=== PATIENT | female | born 2000 | race Asian ===

== ENCOUNTER 2021-08-05 00:13 | Inpatient (IN) ==
[2021-08-05] MEDS ORDERED: MEPERIDINE 50 MG/1 ML VIAL IV PRN (00:24)
[2021-08-05] MEDS ORDERED: BUTORPHANOL 1 MG/ML VIAL IV PRN (00:24)
[2021-08-05] MEDS ORDERED: ONDANSETRON 4 MG/2 ML VIAL IV PRN (00:24)
[2021-08-05] MEDS ORDERED: OXYTOCIN/LR 20 UNIT/1,000 ML BAG IV PRN (00:24)
[2021-08-05] MEDS ORDERED: OXYTOCIN/LR 30 UNIT/1,000 ML BAG IV PRN (00:28)
[2021-08-05 01:09] LABS: Basophils % 0.3 % (0.0-0.8); Eosinophils % 0.4 % (0.00-10.9); Hematocrit 32.2 VOL% (35.7-47.0); Hemoglobin 10.2 GM/DL (12.0-16.0); Immature Granulocytes % 1.2 %; Immature Granulocytes Absolute 0.11 #; Lymphocytes # 2.3 10*3/uL (1.4-4.0); Lymphocytes % 25.5 % (21.3-54.2); Mean Corpuscular HGB Conc 31.7 GM/DL (32-36); Mean Corpuscular Volume 87.7 FL (87-102); Mean Platelet Volume 7.9 FL (9.6-12.0); Monocytes % 7.7 % (1.7-12.7); Neutrophils % 64.9 % (38.7-73.9); Platelet Count 366 T/CUMM (130-400); Red Blood Count 3.67 MC/CUMM (3.8-5.5); Red Cell Distribution Width 13.6 % (9.3-17.3); White Blood Count 8.9 T/CUMM (4-12)
[2021-08-05 01:26] LABS: Albumin 2.8 G/DL (3.4-5.0); Bilirubin,Total 0.4 MG/DL (0.20-1.00); Calcium 9.4 MG/DL (8.5-10.1); Total Protein 6.5 G/DL (6.4-8.2)
[2021-08-05 03:19] LABS: Hepatitis B Surface Ag Quant < 0.10 Index; Hepatitis B Surface Ag Result Non-Reactive (NonReactive)
[2021-08-05 03:23] LABS: HIV Antigen/Antibody Result Nonreactive (Nonreactive)
[2021-08-05] MEDS: LACTATED RINGERS 1,000 ML IV PRN ×2 (06:05→11:05)
[2021-08-05] MEDS ORDERED: hydrOXYzine HCL 25 MG/1 ML VIAL IM PRN (08:20)
[2021-08-05] MEDS ORDERED: LACTATED RINGERS 1,000 ML IV ONE (08:20)
[2021-08-05] MEDS ORDERED: diphenhydrAMINE 50 MG/1 ML VIAL IV PRN ×2 (08:20)
[2021-08-05] MEDS ORDERED: NALOXONE 0.4 MG/ML VIAL IV PRN (08:20)
[2021-08-05] MEDS ORDERED: ePHEDrine 50 MG/ML VIAL IV PRN (08:20)
[2021-08-05] MEDS ORDERED: PROMETHAZINE 25 MG/1 ML VIAL IM ONE (08:20)
[2021-08-05] MEDS ORDERED: CITRIC ACID/SODIUM CITRATE 30 ML UDCUP PO ONE (08:20)
[2021-08-05] MEDS ORDERED: FAMOTIDINE 20 MG/2 ML VIAL IV ONE (08:20)
[2021-08-05] MEDS ORDERED: fentaNYL 2 MCG/ROPIV 0.2% EPID 100 ML EPIDURAL SCH (08:30)
[2021-08-05 12:07] LABS: Bilirubin,Urine Negative (Negative); Blood, Urine Negative (Negative); Glucose,Urine (UA) Negative (Negative); Ketones,Urine Negative (Negative); Mucus,Urine Occasional /LPF (Occasional); Nitrite,Urine Negative (Negative); Protein,Urine Negative; RBC,Urine <1 /HPF (0-4); Squamous Epithelial Cell,Urine Occasional /HPF (0-10); Urine Appearance CLEAR (Clear); Urine Color Straw (Yellow); Urine Specific Gravity 1.013 (1.001-1.035); Urine Urobilinogen < 2.0 EU/DL (0.2-1.0)
[2021-08-05] MEDS ORDERED: miSOPROStoL 200 MCG TABLET ONE (12:35)
[2021-08-05] MEDS ORDERED: CARBOPROST TROMETHAMINE 250 MCG/ML AMP IM ONE (12:36)
[2021-08-05] MEDS ORDERED: METHYLERGONOVINE 0.2 MG/1 ML AMP ONE (12:36)
[2021-08-05] MEDS ORDERED: METHYLERGONOVINE 0.2 MG/1 ML AMP IM ONE (13:25)
[2021-08-05] MEDS ORDERED: IBUPROFEN 800 MG TABLET PO ONE (16:12)
[2021-08-05] MEDS: DOCUSATE SODIUM 100 MG CAPSULE PO SCH (20:56)
[2021-08-06] MEDS: IBUPROFEN 800 MG TABLET PO PRN ×2 (04:21→15:11)
[2021-08-06 04:57] LABS: Basophils % 0.3 % (0.0-0.8); Eosinophils # 0.1 10*3/uL (0.0-0.87); Eosinophils % 0.5 % (0.00-10.9); Hematocrit 28.8 VOL% (35.7-47.0); Hemoglobin 9.1 GM/DL (12.0-16.0); Immature Granulocytes % 0.9 %; Immature Granulocytes Absolute 0.11 #; Lymphocytes # 2.8 10*3/uL (1.4-4.0); Lymphocytes % 22.9 % (21.3-54.2); Mean Corpuscular HGB Conc 31.6 GM/DL (32-36); Mean Corpuscular Volume 88.3 FL (87-102); Mean Platelet Volume 8.1 FL (9.6-12.0); Monocytes % 6.3 % (1.7-12.7); Neutrophils % 69.1 % (38.7-73.9); Platelet Count 227 T/CUMM (130-400); Red Blood Count 3.26 MC/CUMM (3.8-5.5); Red Cell Distribution Width 13.7 % (9.3-17.3); White Blood Count 12.2 T/CUMM (4-12)
[2021-08-06] MEDS: DOCUSATE SODIUM 100 MG CAPSULE PO SCH ×2 (10:38→20:35)
[2021-08-06] MEDS: FERROUS SULFATE 325 MG TABLET PO SCH ×2 (10:38→20:35)
[2021-08-07] MEDS: IBUPROFEN 800 MG TABLET PO PRN (08:03)
[2021-08-07] MEDS: FERROUS SULFATE 325 MG TABLET PO SCH (09:12)
[2021-08-07] MEDS: DOCUSATE SODIUM 100 MG CAPSULE PO SCH (09:12)
[2021-08-07 11:14] VITALS: BP 108/71
== END 2021-08-07 12:30 | disposition home or self-care (01) | DRG 807 ==
LOC: N.LD 00:13 → N.OB 16:15
PROVIDERS: ADMIT Obstetrics & Gynecology; ATTEND Obstetrics & Gynecology